=== PATIENT | male | born 1995 | race African-American/Black ===

== ENCOUNTER 2018-11-22 03:32 | Emergency (ER) | payer OTHER ==
[2018-11-22] MEDS ORDERED: CEFTRIAXONE INJ 250 MG VIAL IM ONE (07:34)
[2018-11-22] MEDS ORDERED: LIDOCAINE 1% INJ-PF (10 MG/ML) 30 ML SDV INJ ONE (07:34)
[2018-11-22] MEDS ORDERED: AZITHROMYCIN 250 MG TABLET PO ONE (07:34)
--- NOTE | 2018-11-22 07:37 | ER Document Report ---
HPI - HPI Time Seen by Provider: 11/22/18 06:38 Pain Level: Denies Context: Patient is a 23-year-old male who presents the emergency department with a chief complaint of penile discharge. He was treated for gonorrhea chlamydia another day, but had sex with the same partner who he has been having sex with. He denies any abdominal pain, nausea, vomiting, or diarrhea. He states that he had protected sex, but ended up having sex with his partner who had not been anitra ated. - CONSTITUTIONAL Constitutional: DENIES: Fever, Chills - CARDIOVASCULAR Cardiovascular: DENIES: Chest pain - GASTROINTESTINAL Gastrointestinal: DENIES: Abdominal Pain, Nausea, Patient vomiting, Diarrhea, Constipation - URINARY Urinary: REPORTS: Dysuria Notes: Penile discharge - MUSCULOSKELETAL Musculoskeletal: DENIES: Extremity pain - DERM Skin Color: Normal Skin Problems: None Past Medical History - Social History Smoking Status: Never Smoker Family History: Reviewed & Not Pertinent Patient has suicidal ideation: No Patient has homicidal ideation: No Renal/ Medical History: Denies: Hx Peritoneal Dialysis Vertical Provider Document - CONSTITUTIONAL Agree With Documented VS: Yes Exam Limitations: No Limitations General Appearance: No Apparent Distress - INFECTION CONTROL TRAVEL OUTSIDE OF THE [place] IN LAST 30 DAYS: No - HEENT HEENT: Atraumatic, Normocephalic - RESPIRATORY Respiratory: Breath Sounds Normal, No Respiratory Distress - CARDIOVASCULAR Cardiovascular: Regular Rhythm Pulses: Normal: Radial - GI/ABDOMEN Gastrointestinal: Abdomen Soft, Abdomen Non-Tender - MUSCULOSKELETAL/EXTREMETIES Musculoskeletal/Extremeties: FROM - NEURO Level of Consciousness: Awake, Alert, Appropriate - DERM Integumentary: Warm, Dry Course - Re-evaluation Re-evalutation: 11/22/18 I do not suspect any life-threatening etiology at this time. Penile discharge noted. The patient will be again empirically treated for gonorrhea and chlamydia, as it is unknown as to whether he did or did not use protection. I discussed this with Dr. Antonio Puckett, and he agrees with empirically treating him again, as he did have sexual intercourse with his partner who had not been treated. I very specifically told the patient not to have sex for the next week, as the infection will not go away if he continues to have sex with his partner, who is most likely also infected. He is in agreement with this plan. Verbal discharge instructions were given to the patient. They verbalized understanding. They are stable for discharge. - Vital Signs Vital signs: Temp Pulse Resp BP Pulse Ox 97.7 F 58 L 16 126/58 H 100 11/22/18 03:45 11/22/18 03:45 11/22/18 03:45 11/22/18 03:45 11/22/18 03:45 Discharge - Discharge Clinical Impression: Penile discharge, STI (sexually transmitted infection) Condition: Stable Disposition: HOME, SELF-CARE Additional Instructions: You need to use protection every time you have sex. Failure to do so can result in transmission of infections or unintended . You have been treated for an sexually transmitted infection (STI) today. All of your partners should be tested and treated as they are also likely to be infected. Please return if you develop abdominal pain, fever, persistent vomiting, or any other symptoms that are concerning to you. DO NOT HAVE SEX FOR ONE WEEK. And until your partner is treated.
[2018-11-22 08:52] VITALS: BP 120/63
== END 2018-11-22 08:54 | disposition home or self-care (01) ==
LOC: ER 03:32
DX: R36.9 Urethral discharge, unspecified (principal); A64 Unspecified sexually transmitted disease
CPT/HCPCS: 99283; 96372; J3490; J0696

== ENCOUNTER 2018-11-23 10:53 | Emergency (ER) | payer OTHER ==
[2018-11-23 11:04] VITALS: BP 152/71
== END 2018-11-23 17:07 | disposition left against medical advice (07) ==
LOC: ER 10:53
DX: Z53.21 Procedure and treatment not carried out due to patient leaving prior to being seen by health care provider (principal); Z20.2 Contact with and (suspected) exposure to infections with a predominantly sexual mode of transmission